=== PATIENT | female | born 1960 | race Caucasian/White ===

== ENCOUNTER → 2017-02-26 | Outpatient (CLI) | payer OTHER | LOC: FIMAGING 15:11 | PROVIDERS: ATTEND Obstetrics & Gynecology Gynecology | DX: Z12.31 Encounter for screening mammogram for malignant neoplasm of breast (principal); Z80.3 Family history of malignant neoplasm of breast ==

== ENCOUNTER 2017-06-27 20:00 | Emergency (ER) | payer OTHER ==
[2017-06-27] MEDS ORDERED: ONDANSETRON 4 MG/2 ML VIAL ONE (20:11)
[2017-06-27] MEDS ORDERED: NS 1,000 ML IV ONE ×2 (20:14→20:20)
[2017-06-27] MEDS ORDERED: ONDANSETRON 4 MG/2 ML VIAL IVP ONE (20:14)
[2017-06-27] MEDS ORDERED: FAMOTIDINE 20 MG/NACL 50 ML IV ONE (20:20)
[2017-06-27] MEDS ORDERED: HYDROmorphONE/DILAUDID 2 MG/ML INJ IVP ONE ×2 (20:20)
[2017-06-27] MEDS ORDERED: PROMETHAZINE HCL 25 MG/ML INJ IVP ONE ×3 (20:20→21:31)
[2017-06-27] MEDS ORDERED: FAMOTIDINE 20 MG/2 ML SDV IVP ONE (20:20)
[2017-06-27] MEDS ORDERED: HYDROmorphONE/DILAUDID 1 MG/ML INJ ONE (20:23)
--- NOTE | 2017-06-27 20:26 | EDPHY ---
H & P Time Seen by Provider: 06/27/17 20:13 HPI/ROS: HPI Abdominal pain, nausea and vomiting. Nausea and vomiting. 57-year-old female by private vehicle with her . This patient was admitted to a hospital in [place] on Wednesday evening secondary to mid abdominal pain, nausea and vomiting. She tells me she had an unremarkable workup there she was treated with antiemetics and pain medication. She was told she likely had an ulcer. She was discharged on Protonix. She felt better yesterday. And decided to return to [place] with her today. For the last 2 hr she states that her mid abdominal pain has come back with severe nausea as well as several episodes of nonbilious, nonbloody vomiting. She reports the pain comes on waves with associated nausea. She describes the pain as sharp and aching. Last bowel movement was yesterday. Denies any bloody or melenic stool. No previous abdominal surgical history. She does not have her medical records with her. ROS: Constitutional: No fever, no chills. No weakness. Eyes: No discharge. No changes in vision. ENT: No sore throat. No nasal congestion or rhinorrhea. Respiratory: No cough. No shortness of breath. Cardiac: No chest pain, no palpitations. Gastrointestinal: As above, no diarrhea. Genitourinary: No hematuria. No dysuria or increased frequency with urination. Musculoskeletal: No back pain. No neck pain. No myalgias or arthralgias. Skin: No rashes. Neurological: No headache. No focal weakness or altered sensation. Past medical history: As above. She denies any significant other past medical history. Denies any allergies to medications. Social history: Nonsmoker. Here with her . Denies alcohol. Physical Exam: General Appearance: Alert, she appears uncomfortable. This patient is responding to questions appropriately and in full sentences. This patient appears well-hydrated and well-nourished. Eyes: Pupils equal and round no pallor or injection. No lid edema, erythema or injection. Respiratory: There are no retractions, lungs are clear to auscultation with good air movement bilaterally. Cardiovascular: Regular rate and rhythm. No murmur. Gastrointestinal: Abdomen is tender throughout the mid abdomen with guarding, no masses, bowel sounds normal. No focal tenderness at McBurney's point. No Ontiveros sign. Neurological: Motor sensory function is grossly intact. Cranial nerves are normal. Gait is normal. Skin: Warm and dry, no rashes. Musculoskeletal: Neck is supple and nontender. Extremities are symmetrical. All joints range without pain or impingement. Psychiatric: No agitation. No depression. Database: EKG: Imaging: CT scan of abdomen and pelvis with IV contrast: Negative. The appendix is well seen visualized and is seen. No evidence of free air. No evidence of volvulus or of other obstructive process. No pathology involving the gallbladder or pancreas. No significant pathology. Results were discussed with staff radiologist Dr. Ravinder Dean. Procedures: Emergency department course: IV placed. Vital signs reviewed. She is hypertensive. Vital signs otherwise normal. She was started on IV normal saline with 1 L to be given over the next hour. She reports that she took 40 mg of oral Protonix earlier today. She will be given 20 mg of IV Pepcid, 6.25 mg of IV Phenergan, 4 mg of IV Zofran and 0.5 mg of IV hydromorphone. Secondary to her acute abdomen as noted above she consents to repeat CT imaging. 9:30 p.m., patient re-evaluated. She complains of nausea still but states her pain is better. She was given another 6.25 mg of IV Phenergan. She states that Zofran does not work for her nausea. We are awaiting results of her CT scan. 9:50 p.m., patient re-evaluated. Feeling much better at this time. Repeat abdominal exam she is soft, nontender nondistended. Results of blood work reviewed. CT imaging reviewed. At this time I do not feel she requires admission. She feels comfortable being discharged with her . She will follow up with [facility] this week for re-evaluation and further management. Return to emergency department precautions reviewed with her and her . All of their questions were answered. She was discharged in good condition with her . Differential Diagnosis: The differential diagnosis on this patient includes but is not limited to perforated peptic ulcer, volvulus, gastritis, pancreatitis, cholecystitis, appendicitis. This represents a partial list of diagnoses considered. These considerations are based on history, physical exam, past history, reassessment and diagnostic testing. Smoking Status: Never smoked Constitutional: Initial Vital Signs Temperature (C) 36.7 C 06/27/17 20:04 Heart Rate 71 06/27/17 20:04 Respiratory Rate 16 06/27/17 20:04 Blood Pressure 162/88 H 06/27/17 20:04 O2 Sat (%) 98 06/27/17 20:04 O2 Delivery Mode Room Air O2 (L/minute) 2 Allergies/Adverse Reactions: No Known Allergies Allergy (Unverified 06/27/17 20:03) Home Medications: Medication Instructions Recorded Citalopram 06/27/17 Lisinopril 06/27/17 Promethazine HCl [Phenergan 25mg 25 mg PO Q4-6PRN PRN #12 tab 06/27/17 (*)] Medical Decision Making - Diagnostics Imaging Results: Imaging Impressions Abdomen CT 06/27/17 21:09 Impression: 1. Small hiatal hernia. 2. Normal appearance of the appendix. 3. Mild colonic diverticulosis, without active diverticulitis. Findings were discussed with Nilton Joseph MD at 21:39, on 06/27/2017. - Data Points Laboratory Results: Laboratory Results 06/27/17 20:17 06/27/17 20:17 06/27/17 06/27/17 20:17 20:17 WBC 7.52 10^3/uL 10^3/uL (3.80-9.50) RBC 4.28 10^6/uL 10^6/uL (4.18-5.33) Hgb 14.1 g/dL g/dL (12.6-16.3) Hct 39.0 % % (38.0-47.0) MCV 91.1 fL fL (81.5-99.8) MCH 32.9 pg pg (27.9-34.1) MCHC 36.2 g/dL g/dL (32.4-36.7) RDW 12.7 % % (11.5-15.2) Plt Count 286 10^3/uL 10^3/uL (150-400) MPV 10.6 fL fL (8.7-11.7) Neut % (Auto) 67.0 % % (39.3-74.2) Lymph % (Auto) 25.4 % % (15.0-45.0) [place] % (Auto) 6.1 % % (4.5-13.0) Eos % (Auto) 0.7 % % (0.6-7.6) Baso % (Auto) 0.5 % % (0.3-1.7) Nucleat RBC Rel Count 0.0 % % (0.0-0.2) Absolute Neuts (auto) 5.04 10^3/uL 10^3/uL (1.70-6.50) Absolute Lymphs (auto) 1.91 10^3/uL 10^3/uL (1.00-3.00) Absolute Monos (auto) 0.46 10^3/uL 10^3/uL (0.30-0.80) Absolute Eos (auto) 0.05 10^3/uL 10^3/uL (0.03-0.40) Absolute Basos (auto) 0.04 10^3/uL 10^3/uL (0.02-0.10) Absolute Nucleated RBC 0.00 10^3/uL 10^3/uL (0-0.01) Immature Gran % 0.3 % % (0.0-1.1) Immature Gran # 0.02 10^3/uL 10^3/uL (0.00-0.10) Sodium 141 mEq/L mEq/L (135-145) Potassium 3.9 mEq/L mEq/L (3.5-5.2) Chloride 103 mEq/L mEq/L (97-110) Carbon Dioxide 24 mEq/l mEq/l (22-31) Anion Gap 14 mEq/L mEq/L (8-16) BUN 18 mg/dL mg/dL (7-23) Creatinine 0.8 mg/dL mg/dL (0.6-1.0) Estimated GFR > 60 Glucose 90 mg/dL mg/dL (70-100) Calcium 10.0 mg/dL mg/dL (8.5-10.4) Total Bilirubin 0.8 mg/dL mg/dL (0.1-1.4) Conjugated Bilirubin 0.3 mg/dL mg/dL (0.0-0.5) Unconjugated Bilirubin 0.5 mg/dL mg/dL (0.0-1.1) AST 39 IU/L IU/L (14-46) ALT 26 IU/L IU/L (9-52) Alkaline Phosphatase 61 IU/L IU/L (38-126) Total Protein 8.2 g/dL g/dL (6.3-8.2) Albumin 4.8 g/dL g/dL (3.5-5.0) Lipase 79 IU/L IU/L (23-300) Medications Given: Discontinued Medications Famotidine (Pepcid) 20 mg IVP EDNOW ONE Stop: 06/27/17 20:21 Last Admin: 06/27/17 20:25 Dose: 20 mg Hydromorphone HCl (Dilaudid) 0.5 mg IVP EDNOW ONE Stop: 06/27/17 20:21 Last Admin: 06/27/17 20:26 Dose: 0.5 mg Hydromorphone HCl (Dilaudid) 0.5 mg IVP EDNOW ONE Stop: 06/27/17 20:21 Last Admin: 06/27/17 20:26 Dose: Not Given Sodium Chloride (Ns) 1,000 mls @ 0 mls/hr IV ONCE ONE PRN Reason: Wide Open Stop: 06/27/17 20:15 Last Admin: 06/27/17 20:14 Dose: 1,000 mls Sodium Chloride (Ns) 1,000 mls @ 0 mls/hr IV EDNOW ONE; Wide Open PRN Reason: Protocol Stop: 06/27/17 20:21 Last Admin: 06/27/17 20:27 Dose: 1,000 mls Famotidine/Sodium Chloride (Pepcid 20 Mg (Premix)) 50 mls @ 200 mls/hr IV EDNOW ONE Stop: 06/27/17 20:34 Last Admin: 06/27/17 20:26 Dose: Not Given Ondansetron HCl (Zofran) 4 mg IVP EDNOW ONE Stop: 06/27/17 20:15 Last Admin: 06/27/17 20:14 Dose: 4 mg Promethazine HCl (Phenergan) 6.25 mg IVP ONCE ONE Stop: 06/27/17 20:21 Last Admin: 06/27/17 20:25 Dose: 6.25 mg Promethazine HCl (Phenergan) 6.25 mg IVP EDNOW ONE Stop: 06/27/17 20:21 Last Admin: 06/27/17 20:27 Dose: Not Given Promethazine HCl (Phenergan) 6.25 mg IVP ONCE ONE Stop: 06/27/17 21:32 Last Admin: 06/27/17 21:41 Dose: 6.25 mg Departure - Departure Disposition: Home, Routine, Self-Care Clinical Impression: Abdominal pain, Vomiting Condition: Good Instructions: Acute Nausea and Vomiting (ED), Abdominal Pain (ED) Additional Instructions: Read and follow provided instructions. Follow-up with [facility], Dr. Ravinder Christian or 1 of his partners early this week for re-evaluation. Call their office on Wednesday to schedule a follow-up appointment. Explain this is for an emergency department follow-up. Take medication as prescribed for nausea. Continue taking her Protonix as prescribed. Return to the emergency department for worsening abdominal pain, vomiting and inability to keep fluids down despite medications, blood in your stool, black stool or other serious concerns. Referrals: Davis Monroe MD [Primary Care Provider] - As per Instructions Ravinder Christian MD [Medical Doctor] - As per Instructions Prescriptions: Promethazine HCl [Phenergan 25mg (*)] 25 mg PO Q4-6PRN PRN #12 tab PRN Reason: For Nausea & Vomiting
[2017-06-27 20:28] LABS: PLATELET COUNT 286 10^3/uL (150-400)
[2017-06-27] MEDS ORDERED: IOPAMIDOL (ISOVUE-300) 100 ML BTL ONE (20:43)
[2017-06-27 22:02] VITALS: BP 121/82
== END 2017-06-27 22:01 | disposition home or self-care (01) ==
LOC: EEVIPCON 20:00
DX: R10.9 Unspecified abdominal pain (principal); R11.10 Vomiting, unspecified; E86.9 Volume depletion, unspecified
CPT/HCPCS: 96374; J1170; J2405; J2550; Q9967

== ENCOUNTER 2017-06-30 11:44 | Inpatient (IN) | payer OTHER ==
--- NOTE | 2017-06-30 12:35 | GCON ---
[f rep st] CONSULTATION GI INPATIENT CONSULTATION. I was kindly requested to see Lavonne by Dr. Malorie Myrick in consultation for chief complaint of nausea. HISTORY OF PRESENT ILLNESS: She is a previously healthy 57-year-old white female, who was on a business trip recently in [place]. On Wednesday, during the day , she felt well. However, Wednesday evening, she developed acute nausea, along with vomiting, that lasted 5 hours. Because of this and dehydration, she presented to an emergency department in [place], and was briefly hospitalized. She states workup there was unremarkable. On Wednesday, she felt somewhat better, and flew home. She was discharged on pantoprazole 40 mg daily. However, starting Wednesday night, she again has developed severe nausea, and this has been a constant problem until now, 4 days later. With the above, she has very little abdominal pain. She denies fever. She denies hematemesis. She denies diarrhea. She has not had a bowel movement since becoming sick, but has been taking very little oral intake. Prior to developing this acute illness, she had no constipation whatsoever. She denies any new medications before becoming ill. No one else is sick with similar symptoms. She continues on the pantoprazole, but without benefit. She has been tried on Zofran and promethazine suppositories, also without benefit. However, IV Compazine did help. She re-presented to the [facility], where a similar workup was done as in [place]. This included a CT scan of the abdomen and pelvis with IV contrast, showing just a small hiatal hernia, mild diverticulosis and normal appendix. Urinalysis negative, by her report. Normal CBC, CMP, lipase. She had a colonoscopy done in 2010, by my partner, Dr. Gamino, where she received 150 mcg of fentanyl and 5 mg of Versed. This was unremarkable, except for some sigmoid diverticulosis. She can get occasional heartburn, but this is usually very well controlled with Prilosec as needed. She is sensitive to dairy and gluten, and avoids these. She continues to feel quite ill, with nausea, not able to eat, difficulty with fluid intake, feeling very dehydrated. PAST MEDICAL HISTORY: 1. As above. 2. Otherwise, noncontributory. ALLERGIES: No known drug allergies. MEDICATIONS: Outpatient medications include only the above. SOCIAL HISTORY: She is . Her 's name is Neo. FAMILY HISTORY: Negative for similar nausea. REVIEW OF SYSTEMS: Positive pertinent review of systems as per my HPI. Otherwise, a complete review of systems is negative. PHYSICAL EXAM: CONSTITUTIONAL: Toxic-appearing, weak woman. SKIN: Warm, dry. EYES: Pupils equal, round, reactive to light and accommodation. EARS, NOSE, MOUTH, and THROAT: Oropharynx without masses, moist mucosa. CARDIAC: Normal S2, normal PMI. RESPIRATORY: Lungs clear to auscultation and percussion anteriorly. GASTROINTESTINAL: Abdomen with some mild diffuse tenderness throughout, but nonlocalizing. No masses felt. NEUROLOGIC: Grossly nonfocal, cranial nerves grossly intact. PSYCHIATRIC: Orientation, insight appropriate. MUSCULOSKELETAL: Strength grossly normal throughout, normal station. LABORATORIES: Include the above. ASSESSMENT: Severe, continued nausea. With her lack of other symptoms, such as abdominal pain, and extensive negative workup, this might just be a very severe viral gastroenteritis, slow to resolve. Other possibilities are less likely. Upper gastrointestinal source, such as peptic ulcer disease, gastritis , etc. is possible, but much less likely with her lack of abdominal pain. The same is true for atypical gallbladder disease (she has had [address] scans, but no ultrasound of the gallbladder). A more severe intraabdominal surgical process is possible, but again less likely with lack of pain, negative workup, etc. Atypical cardiac ischemia causing nausea is possible, but also less likely. [place]'s is unlikely to be this acute. PLAN: 1. With her degree of nausea, dehydration, inability to take p.o., etc., I agree with admission to the hospital. 2. IV fluids. 3. Compazine IV as needed for nausea. 4. Ativan as needed for nausea, anxiety, insomnia. 5. Right upper quadrant ultrasound. 6. If the above is negative, we will perform an upper endoscopy tomorrow (Dr. Christian will be taking over her care) 7. Otherwise, we will see how she does clinically over time. If the above is negative, with no improvement, she might require a surgery and cardiology consultation. Thank you for allowing me to help with the management of the patient. /[id number]/MODL MTDD
--- NOTE | 2017-06-30 13:21 | PDGENHP ---
History and Physical - Chief Complaint Severe nausea - History of Present Illness Healthy 57-year-old woman with a history of well controlled intermittent heartburn who was on a business trip to [facility] when she became severely nauseous and vomited after dinner 06/25/2017. After 5 hours of being unable to eat and throwing up multiple times she was taken to an ER, had a CT scan, IVF, and zofran. She stayed overnight, and the next afternoon she began to feel better and was discharged on pantoprazole 40mg daily. SAfter returning to [place], she was feeling better, but when she tried to eat later in the day the nausea returned. She vomited and felt persistently nauseous the rest of the evening, so went to [facility] ER for evaluation. She had a CT scan of the abdomen and pelvis with IV contrast, which was read as showing a small hiatal hernia, mild diverticulosis and a normal appendix. Normal labs. She was treated with IVF and anti-emetics, then discharged home. She has continued to feel nauseous to the point of dry heaving. She has been able to drink some water. She cannot tolerate Gatorade or any solids. She denies pain associated with the nausea but says there is a persistent tightness in her upper abdomen 'as if she is throwing up even when she isn't'. Her symptoms seems to be worse at night and after eating. Her symptoms are mildly improved by sitting at a 30 degree angle rather than lying flat, but she thinks the only thing that has really helped was the IV Compazine in the ER. She has only had one bowel movement since becoming ill. She saw her PCP yesterday, Dr Monroe, had IVF and zofran but did not feel much better so called [facility] today to request direct admit. This morning (06/30) she had a painless small bowel movement that consisted of four 2in x 2in almost black colored pellets without bright red blood. This is abnormal for her but denies feeling constipated. She denies fever. She denies hematemesis. She denies new medications. She denies sick contacts. Has some sensitivity to gluten and dairy, but avoids these in general. Anamaria Mello MS3 (pt was also seen/examined/interviewed by Dr Malorie Myrick MD) History Information - Allergies/Home Medication List Allergies/Adverse Reactions: No Known Allergies Allergy (Unverified 06/27/17 20:03) Home Medications: Citalopram Hydrobromide [Celexa] 40 mg PO DAILY 06/27/17 [Last Taken 06/27/17] Lisinopril [Zestril 20 mg (*)] 10 mg PO DAILY 06/27/17 [Last Taken 06/27/17] Ascorbic Acid [Vitamin C 500 mg (*)] 500 mg PO DAILY 06/30/17 [Last Taken Unknown] Carboxymethylcellulose 1% [Refresh Celluvisc (*)] 1 drop EACHEYE DAILY PRN 06/30 [Last Taken Unknown] Cholecalciferol Vit D3 [Vitamin D3 (*)] 1,000 units PO DAILY 06/30/17 [Last Taken Unknown] Cyanocobalamin [Vitamin B12 (*)] 1,000 mcg PO DAILY 06/30/17 [Last Taken Unknown ] Ibuprofen [Motrin (*)] 200 mg PO DAILY PRN 06/30/17 [Last Taken Unknown] [place]-3 Fatty Acids [Fish Oil 1000 mg (*)] 1,000 mg PO DAILY 06/30/17 [Last Taken Unknown] I have personally reviewed and updated: family history, medical history, social history (patient has two dogs in the house which she often takes hiking), surgical history - Past Medical History no pertinent PMH Additional medical history: intermittent heartburn - Surgical History Additional surgical history: x2. Tonsillectomy - Family History Positive for: non-pertinent (mom and sister with br ca, mom with CHF/PAD/HTN, dad with HTN) - Social History Smoking Status: Never smoked Alcohol Use: Occasionally (social) Review of Systems Review of Systems: Constitutional: Reports: weakness. Denies: chills, fever, recent illness EENMT: Denies: blurred vision, double vision, nose congestion, sore throat Cardiac: Reports: lightheadedness. Denies: chest pain, edema, irregular heart rate, syncope Respiratory: Denies: shortness of breath, wheezing Gastrointestinal: Reports: vomitting, black stools, nausea. Denies: blood streaked stools, abdominal pain, diarrhea Genitourinary: Denies: burning, discharge Muscolosketal: Denies: muscle pain, muscle stiffness Skin: Reports: no symptoms. Denies: rash Neurological: Reports: headache (Per pt: possibly secondary to dehydration or inability to take lisinopril ). Denies: numbness, paresthesia Hematologic/Lymphatic: Reports: no symptoms Physical Exam Physical Exam: Temp Pulse Resp BP Pulse Ox 98.6 F 57 L 16 188/86 H 96 06/30/17 13:07 06/30/17 13:07 06/30/17 13:07 06/30/17 13:07 06/30/17 13:07 Constitutional: uncomfortable Eyes: anicteric sclera, EOMI Ears, Nose, Mouth, Throat: hearing normal, dry mucous membranes Cardiovascular: regular rate and rhythym, no murmur, rub, or gallop, No edema Respiratory: no respiratory distress, no rales or rhonchi Gastrointestinal: normoactive bowel sounds, tenderness (diffuse), No hepatosplenomegally, No guarding, No rebound, No distension Skin: warm, normal color Neurologic: other (grossly non focal) Psychiatric: interacting appropriately Lymph, Heme, Immunologic: no cervical LAD Lab Data & Imaging Review 06/30/17 13:45 06/30/17 13:45 Assessment & Plan Plan: #Nausea/vomiting (known hiatal hernia/intermittent heartburn) -IV antiemetics, ppi -CT abdomen personally reviewed, agree with interpretation- no specific abnl -Consult GI, discussed care plan with Dr Christian -US ordered, consider HIDA -NPO, IVF #Dehydration -IVF #HTN -Lisinopril, but may need IV med if unable to take po #depression -ssri PCP Dr Monroe FULL CODE Dispo- anticipate > 2 mdts bc of severity of symptoms
[2017-06-30] MEDS ORDERED: ONDANSETRON DISINTEGRATING 4 MG TAB PO PRN (13:23)
[2017-06-30] MEDS ORDERED: HYDROCODONE/APAP 5/325 TAB PO PRN (13:23)
[2017-06-30] MEDS ORDERED: HYDROmorphONE/DILAUDID 1 MG/ML INJ IVP PRN (13:23)
[2017-06-30] MEDS ORDERED: ONDANSETRON 4 MG/2 ML VIAL IVP PRN (13:23)
[2017-06-30] MEDS ORDERED: ACETAMINOPHEN 325 MG TAB PO PRN (13:23)
[2017-06-30] MEDS: D5W 1/2 NS 1,000 ML IV SCH (13:51)
[2017-06-30 13:55] LABS: PLATELET COUNT 301 10^3/uL (150-400)
[2017-06-30] MEDS ORDERED: NS 500 ML IV ONE (14:24)
[2017-06-30] MEDS ORDERED: CARBOXYMETHYLCELLULOSE 1% 0.4 ML DROPERETTE EACHEYE PRN (14:35)
[2017-06-30] MEDS ORDERED: PROMETHAZINE HCL 25 MG/ML INJ IVP ONE (14:39)
[2017-06-30] MEDS ORDERED: LISINOPRIL 20 MG TAB PO SCH (14:45)
[2017-06-30] MEDS ORDERED: MAGNESIUM HYDROXIDE 30 ML UDCUP PO ONE (14:50)
[2017-06-30] MEDS: PANTOPRAZOLE SODIUM 40 MG VIAL IVP SCH ×2 (15:55→20:59)
[2017-06-30] MEDS: LISINOPRIL 10 MG TAB PO SCH (16:02)
[2017-06-30] MEDS: LORazepam 2 MG/ML INJ IVP PRN (16:40)
[2017-06-30] MEDS ORDERED: DEXAMETHASONE 4 MG/ML VIAL IVP ONE (17:35)
[2017-06-30] MEDS: ONDANSETRON 4 MG/2 ML VIAL IVP PRN ×2 (18:02→22:08)
[2017-06-30] MEDS: PROCHLORPERAZINE MALEATE 25 MG SUPPR PR PRN (19:30)
[2017-06-30] MEDS: ZOLPIDEM TARTRATE 5 MG TAB PO PRN (22:12)
[2017-06-30] MEDS: PROMETHAZINE HCL 25 MG/ML INJ IVP PRN (23:07)
[2017-07-01] MEDS: LORazepam 2 MG/ML INJ IVP PRN (00:33)
[2017-07-01] MEDS: PROMETHAZINE HCL 25 MG/ML INJ IVP PRN ×3 (05:02→21:00)
[2017-07-01] MEDS: LISINOPRIL 10 MG TAB PO SCH (08:26)
[2017-07-01] MEDS: PANTOPRAZOLE SODIUM 40 MG VIAL IVP SCH ×2 (08:26→21:00)
[2017-07-01] MEDS: CITALOPRAM 20 MG TAB PO SCH (08:27)
[2017-07-01] MEDS: ONDANSETRON 4 MG/2 ML VIAL IVP PRN (08:41)
[2017-07-01] MEDS ORDERED: NON-FORMULARY NEW DRUG (Citalopram Hydrobromide [Celexa] 40 MG) PO SCH (09:00)
--- NOTE | 2017-07-01 09:36 | HOSPPROG ---
Hospitalist Progress Note Assessment/Plan: #Nausea/vomiting (known hiatal hernia/intermittent heartburn) -IV antiemetics, ppi -CT abdomen and US essentially neg, HIDA today -revwd care with Dr Christian, possible viral but consider central causes if sxs remain severe and BP elev -NPO, IVF as may need EGD too #Dehydration -improved with IVF #HTN -Lisinopril po increased -still elev, consider adding new med - #depression -ssri PCP Dr Monroe FULL CODE Dispo- anticipate > 2 mdts bc of severity of symptoms Subjective: Still with n and HUFF but less than yesterday. Discussed US report, ordered HIDA (radiology came to PU while I was in room). No CP/SOB. Objective: Vital Signs Temp Pulse Resp BP Pulse Ox 98.9 F 65 12 176/95 H 95 07/01/17 08:00 07/01/17 08:00 07/01/17 08:00 07/01/17 08:26 07/01/17 08:00 Laboratory Results 06/30/17 13:45 07/01/17 04:45 06/29/17 06/30/17 07/01/17 11:59 11:59 11:59 Intake Total 50 Balance 50 - Physical Exam Constitutional: not in pain, uncomfortable (but better than yesterday) Eyes: anicteric sclera Ears, Nose, Mouth, Throat: moist mucous membranes, hearing normal Cardiovascular: regular rate and rhythym, no murmur, rub, or gallop Respiratory: no respiratory distress, no rales or rhonchi, clear to auscultation Gastrointestinal: normoactive bowel sounds, tenderness (mild throughout), No rebound, No distension Skin: warm Psychiatric: interacting appropriately, not anxious, not encephalopathic, thought process linear ICD10 Worksheet Patient Problems: Problems Problem Status Onset Nausea Acute - ICD10 Problem Qualifiers (1) Nausea
[2017-07-01] MEDS ORDERED: SINCALIDE 5 MCG VIAL IV ONE (10:20)
--- NOTE | 2017-07-01 10:54 | ASMTLACE ---
KERVIN Acuity / Level of Answers: Yes Care: Did the patient have an inpatient admission? # of Emergency department Answers: 1-2 visits in the last 6 months Social determinants Answers: Mental health diagnosis (anxiety, depression, pers onality disorders, etc.) Score: 7 Date Signed: 07/01/2017 10:53 AM Electronically Signed By:Ashli Chase RN
--- NOTE | 2017-07-01 10:56 | ASMTCMCOM ---
CM Note CM Note Notes: Reveiwed chart, pt admitted w/nausea. She lives at home w/. Anticipate dc home independantly w/ when medically stable. Date Signed: 07/01/2017 10:55 AM Electronically Signed By:Ashli Chase RN
--- NOTE | 2017-07-01 11:19 | PDMN ---
Medical Necessity Medical necessity: Patient meets inpatient criteria per physician note and MCG M -370 Vomiting (severe and persistent vomiting/inability to take p.o: acute N/V lasting 5 hrs on 06/25 w/brief hospitalization/rehydration, then return of symptoms 06/27; no relief from pantoprazole, Phenergan suppository, Zofran; anticipated LOS > 2 midnights for ongoing IV hydration, IV antiemetics, PPI, Ativan and further GI studies.)
[2017-07-01] MEDS: D5W 1/2 NS 1,000 ML IV SCH (11:33)
[2017-07-01] MEDS ORDERED: MIDAZOLAM 2 MG/2 ML VIAL ONE ×2 (13:39)
[2017-07-01] MEDS ORDERED: fentaNYL 100 MCG/2 ML INJ ONE (13:39)
--- NOTE | 2017-07-01 14:03 | SOAPPROG ---
SOAP Progress Note Assessment/Plan: Assessment:Plan: 1) nausea - anti nausea meds, EGD today as sono and HIDA both negative 2) abdo pain - as per number one 07/01/17 14:02 Subjective: CC- nausea still with sx's normal sonogram and hida scan looks in distress Objective: Vital Signs Temp Pulse Resp BP Pulse Ox 36.9 C 61 16 157/88 H 93 07/01/17 11:27 07/01/17 11:27 07/01/17 11:27 07/01/17 11:27 07/01/17 11:27 Laboratory Results 06/30/17 13:45 07/01/17 04:45 06/30/17 07/01/17 07/02/17 05:59 05:59 05:59 Intake Total 50 Balance 50 A + O x3 CTA S1S2, RRR +BS, soft epi tenderness ICD10 Worksheet Patient Problems: Problems Problem Status Onset Nausea Acute
--- NOTE | 2017-07-01 14:31 | PDPROPOC ---
Sedation Plan of Care Sedation Plan of Care: vital signs stable, mental status noted, patient educated of risks, benefits, alternatives, patient can tolerate sedation ASA Classification: ASA 2 Planned drugs: fentanyl, midazolam Mallampati Score: Class 2 Mallampati Reference Image: Patient passed 3-3-2 rule?: Yes
--- NOTE | 2017-07-01 15:00 | GIREPORT ---
[facility] - Endoscopy Department Patient Name: Cary Avendaño Procedure Date: 07/01/2017 1:46 PM Patient Type: Inpatient Attending MD/ ER Physician: Yumi Jimenes Procedure: Upper GI endoscopy Indications: Epigastric abdominal pain, Nausea Providers: Kobi Christian MD Referring MD: Davis Monroe MD Medicines: Fentanyl 100 micrograms IV, Midazolam 7 mg IV Complications: No immediate complications. Estimated blood loss: Minimal. Description of Procedure: After obtaining informed consent, the endoscope was passed under direct vision. Throughout the procedure, the patient's blood pressure, pulse, and oxygen saturations were monitored continuously. The Endoscope was intro duced through the mouth, and advanced to the third part of duodenum. The uppe r GI endoscopy was accomplished without difficulty. The patient tolerated th e procedure well. Findings: The examined esophagus was normal. A hiatal hernia was present. Scattered minimal inflammation characterized by erythema, friability an d granularity was found in the gastric antrum. Biopsies were taken with a cold forceps for histology. Estimated blood loss was minimal. The examined duodenum was normal. The exam was otherwise without abnormality. Estimated Blood Loss: Estimated blood loss was minimal. Post Op Diagnosis: - Normal esophagus. - Hiatal hernia. - Gastritis. Biopsied. - Normal examined duodenum. - The examination was otherwise normal. Recommendation: - Await pathology results. - My office will call with the pathology result with 5-7 days. If you h ave not heard from my office by 12-14, do not assume the pathology is jackie l, please call [phone] to get the pathology results. - Follow an antireflux regimen. - Continue present medications. Rectal Compazine may have been the best anti-nausea medication for her. - [facility]. - Thank you for allowing me to help in your patient's care. Do not hesi sotelo to call with any questions. Attending Participation: I personally performed the entire procedure. Anahi Peace M.D Kobi Christian MD 07/01/2017 2:59:54 PM This report has been signed electronicallyMathew MD Anahi Number of Addenda: 0 Note Initiated On: 07/01/2017 1:46 PM [email or web address]
[2017-07-01] MEDS: LISINOPRIL 20 MG TAB PO SCH ×2 (16:03→16:35)
[2017-07-01] MEDS: PROCHLORPERAZINE MALEATE 25 MG SUPPR PR PRN (16:36)
[2017-07-01] MEDS: ZOLPIDEM TARTRATE 5 MG TAB PO PRN (21:00)
[2017-07-02] MEDS: PROMETHAZINE HCL 25 MG/ML INJ IVP PRN (04:08)
[2017-07-02] MEDS: CITALOPRAM 20 MG TAB PO SCH (09:22)
[2017-07-02] MEDS: PANTOPRAZOLE SODIUM 40 MG VIAL IVP SCH (09:22)
[2017-07-02] MEDS: LISINOPRIL 20 MG TAB PO SCH (09:22)
[2017-07-02 11:35] VITALS: BP 114/74
--- NOTE | 2017-07-02 12:47 | SOAPPROG ---
SOAP Progress Note Assessment/Plan: Assessment:Plan: 1) nausea - anti nausea meds, EGD today as sono and HIDA both negative 2) abdo pain - as per number one 07/01/17 14:02 07/02/17 12:45 pt feeling much better today much less nausea ready to advance diet prob home later today Subjective: CC- nausea much improved today looks brighter, smiling, no sig pain Objective: Vital Signs Temp Pulse Resp BP Pulse Ox 37.2 C 58 L 16 114/74 92 07/02/17 11:33 07/02/17 11:33 07/02/17 11:33 07/02/17 11:33 07/02/17 11:33 Laboratory Results 07/02/17 04:41 07/02/17 04:41 07/01/17 07/02/17 07/03/17 05:59 05:59 05:59 Intake Total 50 1800 Output Total 200 Balance 50 1600 A+Ox3 CTA S1S2 +BS, soft mild tenderness no r/g ICD10 Worksheet Patient Problems: Problems Problem Status Onset Nausea Acute
--- NOTE | 2017-07-02 13:35 | HOSPPROG ---
Hospitalist Progress Note Assessment/Plan: Nausea/vomiting (known hiatal hernia/intermittent heartburn) -IV antiemetics, ppi -CT abdomen and US essentially neg, HIDA normal -reviewd care with Dr Haq, possible viral but consider central causes if sxs remain severe and BP elev -egd unremarkable #Dehydration -improved with IVF #HTN -Lisinopril po increased -still elev, consider adding new med - #depression -ssri PCP Dr Monroe FULL CODE Dispo- home today > 30 minutes Subjective: case d/w dr haq. eating Objective: Vital Signs Temp Pulse Resp BP Pulse Ox 37.2 C 58 L 16 114/74 92 07/02/17 11:33 07/02/17 11:33 07/02/17 11:33 07/02/17 11:33 07/02/17 11:33 Laboratory Results 07/02/17 04:41 07/02/17 04:41 07/01/17 07/02/17 07/03/17 05:59 05:59 05:59 Intake Total 50 1800 Output Total 200 Balance 50 1600 - Physical Exam Constitutional: no apparent distress, appears nourished Eyes: PERRL, anicteric sclera Ears, Nose, Mouth, Throat: moist mucous membranes, hearing normal Cardiovascular: regular rate and rhythym, no murmur, rub, or gallop Respiratory: no respiratory distress, no rales or rhonchi Gastrointestinal: normoactive bowel sounds, soft, non-tender abdomen Genitourinary: no bladder fullness Skin: warm Musculoskeletal: full muscle strength ICD10 Worksheet Patient Problems: Problems Problem Status Onset Nausea Acute
--- NOTE | 2017-07-02 13:58 | GDS ---
[f rep st] DISCHARGE SUMMARY DISCHARGE DIAGNOSES: 1. Nausea and vomiting likely secondary to prolonged viral gastroenteritis. 2. Hiatal hernia. 3. Hypertension. HOSPITAL COURSE: Please see admission history and physical by Dr. Malorie Myrick. Patient presented w ith nausea and vomiting with evidence of volume depletion and inability to tolerate p.o. and had gone over the course of a week. There is some concern this represented hiatal hernia. Workup included n ormal EGD showing only on a small hiatal hernia and a normal HIDA scan. She also had some gastritis which was biopsied. She had abdominal ultrasound which showed a hypervascular gallbladder wall, othe rwise unremarkable. This constellation of symptoms is most consistent with a resolving viral gastroe nteritis. She is discharged home. She was given prescriptions for Compazine suppositories, which sh e tolerated well. Advised to come back for worsening nausea, vomiting, loss of consciousness, et cet era. /[id number]/MODL
== END 2017-07-02 15:05 | disposition home or self-care (01) | DRG 392 ==
LOC: F3E 12:54 → OBSVTOIN 12:54
PROVIDERS: ADMIT Family Medicine; ATTEND Family Medicine
PROC: 0DB68ZX Excision of Stomach, Via Natural or Artificial Opening Endoscopic, Diagnostic (ICD-10-PCS; principal; 2017-07-01 14:00)
DX: A08.4 Viral intestinal infection, unspecified (principal); I10 Essential (primary) hypertension; K44.9 Diaphragmatic hernia without obstruction or gangrene; E86.0 Dehydration
CPT/HCPCS: A9537; J1100; J2060; J2250; J2405; J2550; J2805; J3010

== ENCOUNTER → 2018-03-23 | Outpatient (CLI) | payer OTHER | LOC: FIMAGING 09:39 | PROVIDERS: ATTEND Obstetrics & Gynecology Gynecology | DX: Z12.31 Encounter for screening mammogram for malignant neoplasm of breast (principal); Z80.3 Family history of malignant neoplasm of breast ==